=== PATIENT | female | born 1990 | race Caucasian/White ===

== ENCOUNTER 2016-08-06 23:33 | Emergency (ER) | payer BC ==
--- NOTE | 2016-08-06 23:58 | Emergency Department Record ---
History of Present Illness - General Chief complaint: Head Injury Stated complaint: HEAD INJURY Time Seen by Provider: 08/06/16 23:53 Source: Patient Mode of Arrival: Ambulatory Limitations: No limitations Travel/Exposure to [facility] [place] Within 21 Days of Symptoms: No - History of Present Illness Initial comments: 25 yo female presents to ED with a CC of a head injury approximately 5 hours ago. Patient reports that she struck her self with a car door, then hit the other side of her head on the body of the vehicle. Patient denies LOC, but reports headache, nausea, and feeling off balance. Patient denies health problems at her baseline other than anxiety. MD Complaint: Head injury Onset/Timin -: Hour(s) Mechanism of Injury: Other Location: Parietal, Temporal Loss of Consciousness: No Previous Trauma to this Area: No Severity: Moderate Severity scale (1-10): 5 Quality: Aching Consistency: Constant Provoking factors: None known Other Injuries: None Associated Symptoms: Nausea - Related Data Home Medications Medication Instructions Recorded Confirmed Last Taken No Home Med [NO HOME MEDS] 08/06/16 08/06/16 Unknown Allergies/Adverse reactions: Allergies Allergy/AdvReac Type Severity Reaction Status Date / Time cefaclor [From Ceclor] Allergy HIVES Verified 08/06/16 23:58 codeine Allergy PT UNSURE Verified 08/06/16 23:44 OF REACTION Travel Screening - Travel/Exposure Within Last 30 Days Have you traveled within the last 30 days?: No Review of Systems Constitutional: Denies: Chills, Fever, Malaise, Night sweats Eyes: Denies: Eye discharge, Eye pain ENT: Denies: Congestion, Ear pain, Epistaxis Respiratory: Denies: Cough, Dyspnea Cardiovascular: Denies: Chest pain, Dyspnea on exertion Endocrine: Denies: Fatigue, Heat or cold intolerance Gastrointestinal: Reports: Nausea. Denies: Abdominal pain Genitourinary: Denies: Dysuria, Frequency, Hematuria, Incontinence Musculoskeletal: Denies: Arthralgia, Back pain, Gout, Joint swelling Skin: Denies: Bruising, Change in color, Change in hair/nails, Rash Neurological: Reports: Headache. Denies: Abnormal gait, Confusion, Seizure Psychiatric: Denies: Anxiety Hematological/Lymphatic: Denies: Anemia, Blood Clots Past Medical History - SOCIAL HISTORY Smoking Status: Never smoker Alcohol Use: None Drug Use: None - RESPIRATORY Hx Respiratory Disorders: No - CARDIOVASCULAR Hx Cardio Disorders: No - NEURO Hx Neuro Disorders: No - GI Hx GI Disorders: No - Hx Genitourinary Disorders: No - ENDOCRINE Hx Endocrine Disorders: No - MUSCULOSKELETAL Hx Musculoskeletal Disorders: No - PSYCH Hx Psych Problems: No - HEMATOLOGY/ONCOLOGY Hx Hematology/Oncology Disorders: No Family Medical History Any Significant Family History?: No Physical Exam - General General Appearance: Alert, Oriented x3, Cooperative, Anxious Limitations: No limitations - Head Head exam: Atraumatic, Normocephalic, Normal inspection Head exam detail: negative: Abrasion, Contusion, Jacobson's sign, General tenderness, Hematoma, Laceration - Eye Eye exam: Normal appearance. negative: Conjunctival injection, Periorbital swelling, Periorbital tenderness, Scleral icterus - ENT Ear exam: negative: Auricular hematoma, Auricular trauma Nasal Exam: negative: Active bleeding, Discharge, Dried blood, Foreign body Mouth exam: negative: Drooling, Laceration, Muffled voice, Tongue elevation - Neck Neck exam: Normal inspection. negative: Meningismus, Tenderness - Respiratory Respiratory exam: Normal lung sounds bilaterally. negative: Rales, Respiratory distress, Rhonchi, Stridor - Cardiovascular Cardiovascular Exam: Regular rate, Normal rhythm, Normal heart sounds - GI/Abdominal GI/Abdominal exam: Soft. negative: Rebound, Rigid, Tenderness - Rectal Rectal exam: Deferred - exam: Deferred - Extremities Extremities exam: Normal inspection. negative: Calf tenderness, Pedal edema, Tenderness - Back Back exam: Denies: CVA tenderness (R), CVA tenderness (L) - Neurological Neurological exam: Alert, Normal gait, Oriented X3 - Psychiatric Psychiatric exam: Anxious, Normal mood - Skin Skin exam: Normal color. negative: Abrasion Type of lesion: negative: abrasion Course Vital Signs 08/06/16 23:45 Temperature 97.8 F Pulse Rate [ 97 H Pulse Ox Probe] Respiratory 18 Rate Blood Pressure 150/76 [Left Arm] Pulse Ox 100 - Reevaluation(s) Reevaluation #1: 08/07/16 00:38 CT Brain: Nothing acute. Patient updated on all results and appears stable for discharge at this time. Disposition Disposition: Discharge Clinical Impression: Minor head injury Qualifiers: Encounter type: initial encounter Qualified Code(s): S00.90XA - Unspecified superficial injury of unspecified part of head, initial encounter Disposition: Home, Self-Care Condition: (2) Stable Instructions: Minor Head Injury (ED) Additional Instructions: Return to ED if your symptoms worsen or if you have any concerns. Follow-up with your family doctor in 3-5 days as directed. Forms: Patient Portal Access Time of Disposition: 00:38
[2016-08-07] MEDS ORDERED: ONDANSETRON 4 MG ODT TABLET SL ONE (00:48)
== END 2016-08-07 00:59 | disposition home or self-care (01) ==
LOC: ER 23:33
DX: S00.90XA Unspecified superficial injury of unspecified part of head, initial encounter (principal); R11.0 Nausea; R51 Headache; R42 Dizziness and giddiness; W22.8XXA Striking against or struck by other objects, initial encounter
CPT/HCPCS: 70450; 99283

== ENCOUNTER 2017-11-23 22:23 | Emergency (ER) | payer BC ==
[2017-11-23] MEDS ORDERED: LIDOCAINE VISC 2% 15ML SOLUTION MM ONE (22:28)
[2017-11-23] MEDS ORDERED: NEOMYCIN/POLYMYXIN B SULF/HC 10ML BTL OT ONE (23:06)
--- NOTE | 2017-11-23 23:09 | Emergency Department Record ---
History of Present Illness - General Chief complaint: ENT Stated complaint: BUG IN EAR Time Seen by Provider: 11/23/17 22:39 Source: Patient Mode of Arrival: Ambulatory Limitations: No limitations - History of Present Illness Initial comments: pt has a bug in her ear. complaint: Ear pain, Foreign body Onset/Timin -: Minutes(s) Location: L ear Severity: Mild Severity scale (1-10): 9 - Related Data Allergies Allergy/AdvReac Type Severity Reaction Status Date / Time cefaclor [From Ceclor] Allergy HIVES Verified 08/06/16 23:58 codeine Allergy PT UNSURE Verified 08/06/16 23:44 OF REACTION Travel Screening - Travel/Exposure Within Last 30 Days Have you traveled within the last 30 days?: No - Travel/Exposure Within Last Year Have you traveled outside the [place] in the last year?: No - Additonal Travel Details Have you been exposed to anyone with a communicable illness?: No - Travel Symptoms Symptom Screening: None Review of Systems Reviewed: No additional complaints except as noted below Constitutional: Reports: As per HPI. Denies: Chills, Fever, Malaise, Night sweats, Weakness, Weight change Eyes: Reports: As per HPI. Denies: Eye discharge, Eye pain, Photophobia, Vision change ENT: Reports: As per HPI, Ear pain. Denies: Congestion, Dental pain, Epistaxis , Hearing loss, Throat pain Respiratory: Reports: As per HPI. Denies: Cough, Dyspnea, Hemoptysis, Stridor, Wheezes Cardiovascular: Reports: As per HPI. Denies: Arrhythmia, Chest pain, Dyspnea on exertion, Edema, Murmurs, Orthopnea, Palpitations, Paroxysmal nocturnal dyspnea, Rheumatic Fever, Syncope Endocrine: Reports: As per HPI. Denies: Fatigue, Heat or cold intolerance, Polydipsia, Polyuria Gastrointestinal: Reports: As per HPI. Denies: Abdominal pain, Constipation, Diarrhea, Hematemesis, Hematochezia, Melena, Nausea, Vomiting Genitourinary: Reports: As per HPI. Denies: Abnormal menses, Discharge, Dyspareunia, Dysuria, Frequency, Hematuria, Incontinence, Retention, Urgency Musculoskeletal: Reports: As per HPI. Denies: Arthralgia, Back pain, Gout, Joint swelling, Myalgia, Neck pain Skin: Reports: As per HPI. Denies: Bruising, Change in color, Change in hair/ nails, Lesions, Pruritus, Rash Neurological: Reports: As per HPI. Denies: Abnormal gait, Confusion, Headache, Numbness, Paresthesias, Seizure, Tingling, Tremors, Vertigo, Weakness Psychiatric: Reports: As per HPI. Denies: Anxiety, Auditory hallucinations, Depression, Homicidal thoughts, Suicidal thoughts, Visual hallucinations Hematological/Lymphatic: Reports: As per HPI. Denies: Anemia, Blood Clots, Easy bleeding, Easy bruising, Swollen glands Past Medical History - SOCIAL HISTORY Smoking Status: Never smoker Alcohol Use: None Drug Use: None - RESPIRATORY Hx Respiratory Disorders: No - CARDIOVASCULAR Hx Cardio Disorders: No - NEURO Hx Neuro Disorders: No - GI Hx GI Disorders: No - Hx Genitourinary Disorders: No - ENDOCRINE Hx Endocrine Disorders: No - MUSCULOSKELETAL Hx Musculoskeletal Disorders: No - PSYCH Hx Psych Problems: No - HEMATOLOGY/ONCOLOGY Hx Hematology/Oncology Disorders: No Family Medical History Any Significant Family History?: No Physical Exam - General General Appearance: Alert, Oriented x3, Cooperative, No acute distress - Head Head exam: Normal inspection - Eye Eye exam: Normal appearance, PERRL, EOMI Pupils: Normal accommodation - ENT ENT exam: Normal exam, Mucous membranes moist, Normal external ear exam, Normal orophraynx, Other (bug in l ear) Ear exam: Normal external inspection. negative: External canal tenderness Nasal Exam: Normal inspection. negative: Discharge, Sinus tenderness Mouth exam: Normal external inspection, Tongue normal Teeth exam: Normal inspection. negative: Dental caries Throat exam: Normal inspection. negative: Tonsillar erythema, Tonsillar exudate - Neck Neck exam: Normal inspection, Full ROM. negative: Tenderness - Respiratory Respiratory exam: Normal lung sounds bilaterally. negative: Respiratory distress - Cardiovascular Cardiovascular Exam: Normal rhythm, Normal heart sounds, Tachycardia - GI/Abdominal GI/Abdominal exam: Soft, Normal bowel sounds. negative: Tenderness - Rectal Rectal exam: Deferred - exam: Deferred - Extremities Extremities exam: Normal inspection, Full ROM, Normal capillary refill. negative: Tenderness - Back Back exam: Reports: Normal inspection, Full ROM. Denies: Muscle spasm, Rash noted, Tenderness - Neurological Neurological exam: Alert, CN II-XII intact, Normal gait, Oriented X3 - Psychiatric Psychiatric exam: Normal affect, Normal mood - Skin Skin exam: Dry, Intact, Normal color, Warm Course Vital Signs 11/23/17 22:28 Pulse Rate 112 H Respiratory 20 Rate Blood Pressure 131/103 Pulse Ox 96 - Reevaluation(s) Reevaluation #1: 11/23/17 23:09 viscous lidocaine and suction. insect removed. canal erythematous Disposition Disposition: Discharge Clinical Impression: Insect bite of ear with local reaction Qualifiers: Encounter type: initial encounter Laterality: left Qualified Code(s): S00.462A - Insect bite (nonvenomous) of left ear, initial encounter; W57.XXXA - Bitten or stung by nonvenomous insect and other nonvenomous arthropods, initial encounter Foreign body in ear Qualifiers: Encounter type: initial encounter Laterality: left Qualified Code(s): T16.2XXA - Foreign body in left ear, initial encounter Disposition: Home, Self-Care Condition: (1) Good Instructions: Ear Foreign Body (ED) Additional Instructions: follow up with family doctor. return sooner if worse. cortisporin otic dropps 2 drips 4 times a day yogi 5 days Quality - Quality Measures Quality Measures: N/A - Blood Pressure Screening Does Patient Have Any of the Following: No Blood Pressure Classification: Hypertensive Reading Systolic Measurement: 131 Diastolic Measurement: 103 Screening for High Blood Pressure: < First Hypertensive BP, F/U Documented > [ G8950] First Hypertensive Follow-up Interventions: Follow-up with rescreen GT 1 day and LT 4 weeks.
== END 2017-11-23 23:31 | disposition home or self-care (01) ==
LOC: ER 22:23
DX: T16.2XXA Foreign body in left ear, initial encounter (principal); W57.XXXA Bitten or stung by nonvenomous insect and other nonvenomous arthropods, initial encounter
CPT/HCPCS: 69200; 99282; J3490

== ENCOUNTER 2018-05-14 20:10 | Emergency (ER) | payer BC ==
[2018-05-14] MEDS ORDERED: ONDANSETRON HCL IV 4 MG/2 ML VIAL IVP ONE (20:19)
--- NOTE | 2018-05-14 20:24 | Emergency Department Record ---
History of Present Illness - General Chief Complaint: Dizziness Stated Complaint: DIZZY Time Seen by Provider: 05/14/18 20:13 Source: Patient Mode of Arrival: Ambulatory Limitations: No limitations - History of Present Illness Initial Comments: 27 yo female presents to ED for evaluation of feeling dizzy, weak, subjective fevers/chills. Patient reports that she was recently seen in ED for abdominal pain symptoms and RLQ pain, CT abdomen and Pelvis was negative for an acute process and appendix appeared normal. Patient reports a history of anxiety which she believes is worsening her nausea and overall symptoms today. MD Complaint: Dizziness Onset/Timin -: Days(s) Timing: Unsure Description: Lightheadedness, Nausea History of Same: No History of Trauma: No Severity: Mild Improves With: Nothing Worsens With: Nothing Associated Symptoms: Denies other symptoms - Zackary Coma Scale Eye Response: (4) Open spontaneously Motor Response: (6) Obeys commands Verbal Response: (5) Oriented [place] Total: 15 - Related Data Previous Rx's Medication Instructions Recorded Ondansetron [Zofran Odt] 4 mg PO Q6H PRN #10 tab.rapdis 05/14/18 Allergies Allergy/AdvReac Type Severity Reaction Status Date / Time [facility] Allergy HIVES Verified 08/06/16 23:58 codeine Allergy PT UNSURE Verified 08/06/16 23:44 OF REACTION Review of Systems Constitutional: Reports: Chills, Fever. Denies: Malaise, Night sweats Eyes: Denies: Eye discharge, Eye pain ENT: Denies: Congestion, Ear pain, Epistaxis Respiratory: Denies: Cough, Dyspnea Cardiovascular: Denies: Chest pain, Dyspnea on exertion Endocrine: Denies: Fatigue, Heat or cold intolerance Gastrointestinal: Reports: Abdominal pain, Nausea. Denies: Vomiting Genitourinary: Denies: Incontinence, Retention Musculoskeletal: Denies: Arthralgia, Back pain Skin: Denies: Bruising, Change in color Neurological: Denies: Abnormal gait, Confusion, Seizure Psychiatric: Reports: Anxiety Hematological/Lymphatic: Denies: Anemia, Blood Clots Past Medical History - SOCIAL HISTORY Smoking Status: Never smoker Drug Use: None - RESPIRATORY Hx Respiratory Disorders: No - CARDIOVASCULAR Hx Cardio Disorders: No - NEURO Hx Neuro Disorders: No - GI Hx GI Disorders: No - Hx Genitourinary Disorders: No - ENDOCRINE Hx Endocrine Disorders: No - MUSCULOSKELETAL Hx Musculoskeletal Disorders: No - PSYCH Hx Psych Problems: No - HEMATOLOGY/ONCOLOGY Hx Hematology/Oncology Disorders: No Physical Exam - General General Appearance: Alert, Oriented x3, Cooperative, No acute distress, Anxious , Other (Ambulates to Room #3 with normal, steady gait.) Limitations: No limitations - Head Head exam: Atraumatic, Normocephalic, Normal inspection Head exam detail: negative: Abrasion, Contusion, Jacobson's sign, General tenderness, Hematoma, Laceration - Eye Eye exam: Normal appearance. negative: Conjunctival injection, Periorbital swelling, Periorbital tenderness, Scleral icterus - ENT Ear exam: negative: Auricular hematoma, Auricular trauma Nasal Exam: negative: Active bleeding, Discharge, Dried blood, Foreign body Mouth exam: negative: Drooling, Laceration, Muffled voice, Tongue elevation - Neck Neck exam: Normal inspection. negative: Meningismus, Tenderness - Respiratory Respiratory exam: Normal lung sounds bilaterally. negative: Rales, Respiratory distress, Rhonchi, Stridor - Cardiovascular Cardiovascular Exam: Regular rate, Normal rhythm, Normal heart sounds - GI/Abdominal GI/Abdominal exam: Soft, Tenderness, Other (Mild TTP RLQ on examination, no rebound/guarding present on examination.). negative: Rebound, Rigid - Rectal Rectal exam: Deferred - exam: Deferred - Extremities Extremities exam: Normal inspection. negative: Calf tenderness, Pedal edema, Tenderness - Back Back exam: Denies: CVA tenderness (R), CVA tenderness (L) - Neurological Neurological exam: Alert, Normal gait, Oriented X3 - Psychiatric Psychiatric exam: Normal affect, Normal mood - Skin Skin exam: Normal color. negative: Abrasion Type of lesion: negative: abrasion Course - Reevaluation(s) Reevaluation #1: 05/14/18 20:25 EKG: Sinus tachycardia 105 Normal axis, normal intervals T wave inversion III only Patient was seen and examined, no peritoneal signs are present on examination. Repeat CT abdomen and Pelvis does not appear to be indicated based on my examination. Will obtain laboratory studies, UA, administer IVFs and Zofran and reassess. Reevaluation #2: 05/14/18 21:09 Laboratory studies were reviewed and are grossly unremarkable for an acute process. Patient was updated on all results, appears stable for discharge at this time. Medical Decision Making - Lab Data Result diagrams: 05/14/18 20:42 05/14/18 20:42 Disposition Disposition: Discharge Clinical Impression: Lightheaded, Nausea Disposition: Home, Self-Care Condition: (2) Stable Instructions: Dizziness (ED) Additional Instructions: Return to ED if your symptoms worsen or if you have any concerns. Zofran as directed. Follow-up with your family doctor in 3-5 days as directed. Prescriptions: Ondansetron [Zofran Odt] 4 mg PO Q6H PRN #10 tab.rapdis PRN Reason: Nausea/Vomiting Forms: Patient Portal Access Time of Disposition: 21:10 Quality - Quality Measures Quality Measures: N/A - Blood Pressure Screening Does Patient Have Any of the Following: No Blood Pressure Classification: Hypertensive Reading Systolic Measurement: 139 Diastolic Measurement: 95 Screening for High Blood Pressure: < First Hypertensive BP, F/U Documented > [ G8950] First Hypertensive Follow-up Interventions: Referral to alternative/primary care provider.
[2018-05-14] MEDS ORDERED: 0.9 % SODIUM CHLORIDE 1000ML 1,000 ML IV SCH (20:30)
[2018-05-14 20:53] LABS: BASO % 0.1 % (0-6); EOS % 0.5 % (0-6); HEMATOCRIT 44.2 % (35.0-47.0); HEMOGLOBIN 14.9 gm/dl (11.6-16.0); LYMPH % 33.1 % (16-45); MEAN CELL VOLUME 87.7 fl (81-97); MEAN CORPUSCULAR HEMOGLOBIN 29.6 pg (27-33); MEAN CORPUSCULAR HGB CONC 33.7 g/dl (32-36); MEAN PLATELET VOLUME 9.1 fl (7.4-10.4); MONO % 10.3 % (0-9); PLATELET COUNT 422 K/uL (130-400); RED BLOOD COUNT 5.04 M/uL (3.80-5.40); RED CELL DISTRIBUTION WIDTH 12.8 % (11.5-14.5); WHITE BLOOD COUNT W/O DIFF 10.8 K/uL (4.2-12.2)
[2018-05-14 20:54] LABS: URINE APPEARANCE CLEAR; URINE BILIRUBIN NEGATIVE (NEGATIVE); URINE BLOOD NEGATIVE (NEGATIVE); URINE COLOR YELLOW; URINE GLUCOSE (UA) NEGATIVE (NEGATIVE); URINE KETONE NEGATIVE (NEGATIVE); URINE LEUKOCYTE ESTERASE NEGATIVE (NEGATIVE); URINE NITRITE NEGATIVE (NEGATIVE); URINE PROTEIN NEGATIVE (NEGATIVE); URINE UROBILINOGEN 0.2 E.U./dL (0.20 - 1.00)
[2018-05-14 20:55] LABS: HCG,QUALITATIVE URINE NEGATIVE (NEGATIVE)
[2018-05-14 21:02] LABS: BLOOD UREA NITROGEN 10 mg/dL (6-20); CREATININE 0.7 mg/dL (0.5-0.9); EST GLOMERULAR FILTRATION RATE > 60 mL/min
[2018-05-14 21:03] LABS: TOTAL PROTEIN 7.8 g/dL (6.6-8.7)
[2018-05-14 21:05] LABS: GLUCOSE,RANDOM 82 mg/dL (74-109)
[2018-05-14 21:08] LABS: ALB/GLOB RATIO 1.4 (1.1-1.8); ALBUMIN 4.5 g/dL (4.0-5.0); ALKALINE PHOSPHATASE 78 U/L (45-87); ALT/SGPT 26 U/L (<33); AST/SGOT 24 U/L (10.0-35.0)
== END 2018-05-14 21:23 | disposition home or self-care (01) ==
LOC: ER 20:10
DX: R42 Dizziness and giddiness (principal); R11.0 Nausea; R10.31 Right lower quadrant pain
CPT/HCPCS: 80053; 81003; 81025; 85025; 93005; 93010; 96374; 99284; J2405; J7030